=== PATIENT | male | born 1965 | race Caucasian/White ===

== ENCOUNTER 2018-12-27 09:01 | Outpatient (CLI) | payer BC ==
--- NOTE | 2018-12-27 11:53 | MRI ---
MRI LUMBAR SPINE WITHOUT CONTRAST: Date: 12/27/18 INDICATINO: Low back pain. Lumbar radiculopathy. No comparison available. FINDINGS: Lumbar vertebra maintain normal height and alignment. Disc spaces are relatively well maintained. Mil d degenerative disc changes are noted. Mild loss of disc space at L2-3. At L1-2, no significant disc bulge. Mild facet hypertrophy. No central canal or foraminal stenosis. At L2-3, mild diffuse disc bulge flattens the thecal sac. Facet hypertrophy is present. No significan t central canal or foraminal stenosis. At L3-4, minimal disc bulge flattens the thecal sac. Moderate facet and ligamentous hypertrophy. Post erior epidural fat. No significant central canal stenosis. There is mild bilateral foraminal encroach ment secondary to the diffuse disc bulge and facet hypertrophy. At L4-5, mild diffuse bulge flattens the thecal sac. There is a laminectomy defect on the right with resection of lamina and portions of the facet on the right. Left facet hypertrophy and ligamentous hypertrophy is present and there is posterior epidural fat. Mild central canal stenosis. Bilateral foraminal narrowing secondary to broad based disc bulge a nd facet hypertrophy. At L5-S1, broad based disc bulge flattens the thecal sac. Moderate facet hypertrophy. No significant central canal stenosis. Bilateral foraminal stenosis is present due to broad based bulge and facet hy pertrophy. IMPRESSION: Posterior laminectomy change on the right at L4-5 with mild central canal stenosis. Foraminal stenosi s seen bilaterally at L4-5 and L5-S1 as described. POS: OFF
== END 2018-12-27 09:02 | disposition home or self-care (01) ==
LOC: SCSMRI 09:01
PROVIDERS: ATTEND Family Medicine
DX: M51.16 Intervertebral disc disorders with radiculopathy, lumbar region (principal); Z98.890 Other specified postprocedural states; M48.061 Spinal stenosis, lumbar region without neurogenic claudication; M48.07 Spinal stenosis, lumbosacral region
CPT/HCPCS: 72148

== ENCOUNTER 2021-01-30 21:32 | Emergency (ER) | payer OTHER, BC ==
[2021-01-30] MEDS ORDERED: TETANUS AND DIPHTHERIA TOX/PF 0.5 ML DISP.SYRIN ONE (21:57)
[2021-01-30] MEDS ORDERED: Boostrix 0.5 ML (Tdap) VIAL ONE (22:02)
[2021-01-30] MEDS ORDERED: Rabies Vaccine Human 2.5 UNITS VIAL IM ONE (22:45)
== END 2021-01-30 23:40 | disposition home or self-care (01) ==
LOC: ERS 21:32
DX: S61.255A Open bite of left ring finger without damage to nail, initial encounter (principal); Z23 Encounter for immunization; W54.0XXA Bitten by dog, initial encounter
CPT/HCPCS: 90376; 90471; 90472; 90675; 90714; 90715; 96372

== ENCOUNTER → 2021-02-02 | Day surgery (SDC) | payer BC ==
[~2021-02-02] MED LIST: Rabies Vaccine Human 2.5 UNITS VIAL IM ONE
== END ==
LOC: ER/OP 17:33
DX: Z23 Encounter for immunization (principal); Z88.1 Allergy status to other antibiotic agents; Z88.8 Allergy status to other drugs, medicaments and biological substances
CPT/HCPCS: 90471; 90675

== ENCOUNTER → 2021-02-09 | Day surgery (SDC) | payer BC, OTHER | LOC: EDSTATUS 15:17 → ERS 17:42 → ER/OP 17:42 | DX: Z23 Encounter for immunization (principal); Z88.1 Allergy status to other antibiotic agents; Z88.8 Allergy status to other drugs, medicaments and biological substances | CPT/HCPCS: 90471; 90675 ==

== ENCOUNTER → 2021-02-16 | Day surgery (SDC) | payer BC ==
[~2021-02-16] MED LIST changes: -Rabies Vaccine Human 2.5 UNITS VIAL IM ONE; +Rabies Vaccine Human 2.5 UNITS VIAL ONE
== END ==
LOC: ER/OP 17:39
DX: Z23 Encounter for immunization (principal); E11.9 Type 2 diabetes mellitus without complications; I10 Essential (primary) hypertension; Z88.1 Allergy status to other antibiotic agents; Z88.8 Allergy status to other drugs, medicaments and biological substances
CPT/HCPCS: 90471; 90675

== ENCOUNTER → 2021-02-23 | Day surgery (SDC) | payer BC ==
[~2021-02-23] MED LIST changes: +Rabies Vaccine Human 2.5 UNITS VIAL IM ONE; -Rabies Vaccine Human 2.5 UNITS VIAL ONE
== END ==
LOC: ER/OP 19:17
PROVIDERS: ATTEND Pathology Anatomic Pathology & Clinical Pathology
DX: Z23 Encounter for immunization (principal); E11.9 Type 2 diabetes mellitus without complications; E78.5 Hyperlipidemia, unspecified; I10 Essential (primary) hypertension; Z79.82 Long term (current) use of aspirin; Z79.84 Long term (current) use of oral hypoglycemic drugs; Z79.899 Other long term (current) drug therapy; Z88.1 Allergy status to other antibiotic agents; Z88.8 Allergy status to other drugs, medicaments and biological substances
CPT/HCPCS: 90471; 90675

== ENCOUNTER 2021-04-29 09:33 | Outpatient (CLI) | payer BC | END 2021-04-29 09:34 | disposition home or self-care (01) | LOC: MRI 09:33 | PROVIDERS: ATTEND Internal Medicine | DX: M47.26 Other spondylosis with radiculopathy, lumbar region (principal); M48.061 Spinal stenosis, lumbar region without neurogenic claudication; Z98.890 Other specified postprocedural states | CPT/HCPCS: 72148 ==

== ENCOUNTER 2023-05-26 09:38 | Outpatient (CLI) | payer BC | END 2023-05-26 09:39 | disposition home or self-care (01) | LOC: MRI 09:38 | PROVIDERS: ATTEND Internal Medicine | DX: M47.26 Other spondylosis with radiculopathy, lumbar region (principal); M47.817 Spondylosis without myelopathy or radiculopathy, lumbosacral region | CPT/HCPCS: 72148 ==